=== PATIENT | female | born 1975 | race Caucasian/White ===

== ENCOUNTER → 2016-12-08 | Outpatient (CLI) | payer BC | LOC: LAB 08:40 | DX: N76.0 Acute vaginitis (principal) ==

== ENCOUNTER → 2016-12-15 | Outpatient (CLI) | payer BC | LOC: RAD 08:44 | DX: N94.0 Mittelschmerz (principal); R10.31 Right lower quadrant pain ==

== ENCOUNTER → 2017-08-25 | Outpatient (CLI) | payer BC ==
[2017-08-25 10:31] LABS: EOS % 0.7 % (1.0-5.0); HEMATOCRIT 43.3 % (37.0-47.0); HEMOGLOBIN 14.4 g/dL (12.5-16.0); LYMPH# 1.2 (1.50-4.00); MEAN CELL VOLUME 92 fl (78-100); MEAN CORPUSCULAR HEMOGLOBIN 31 pg (27-31); MEAN CORPUSCULAR HGB CONC 33 g/dL (33-37); MEAN PLATELET VOLUME 9.8 fl (7.4-10.4); MONO # 0.4 (0.20-0.80); NEU # 3.7 (1.40-6.50); PLATELET COUNT 268 K/mm3 (130-400); RED CELL DISTRIBUTION WIDTH 12.5 % (11.5-14.5); WHITE BLOOD COUNT 5.4 K/mm3 (4.8-10.8)
[2017-08-25 10:46] LABS: ALBUMIN 4.2 g/dL (3.5-5.0); BUN/CREATININE RATIO 14.5 (6.0-26.0); CALCIUM 9.3 mg/dL (8.4-10.2); TOTAL BILIRUBIN 1.1 mg/dL (0.2-1.3)
== END ==
LOC: LAB 10:05
DX: Z79.899 Other long term (current) drug therapy (principal)

== ENCOUNTER → 2019-06-27 | Outpatient (CLI) | payer BC ==
[2019-06-27 08:05] LABS: ALBUMIN 3.6 g/dL (3.5-5.0); POTASSIUM 3.5 mmol/L (3.5-5.1)
[2019-06-27 08:06] LABS: CALCIUM 8.6 mg/dL (8.3-10.5)
[2019-06-27 08:08] LABS: TOTAL PROTEIN 6.4 g/dL (6.4-8.3)
[2019-06-27 08:29] LABS: HEMATOCRIT 36.7 % (37.0-47.0); HEMOGLOBIN 11.9 g/dL (12.5-16.0); MEAN CELL VOLUME 92 fl (78-100); MEAN CORPUSCULAR HEMOGLOBIN 30 pg (27-31); MEAN CORPUSCULAR HGB CONC 32 g/dL (33-37); MEAN PLATELET VOLUME 9.8 fl (7.4-10.4); PLATELET COUNT 271 K/mm3 (130-400); RED BLOOD COUNT 4.01 M/mm3 (4.10-5.30); RED CELL DISTRIBUTION WIDTH 12.7 % (11.5-14.5); WHITE BLOOD COUNT 7.7 K/mm3 (4.8-10.8)
[2019-06-27 08:56] LABS: BAND 3 % (0-10); LYMPHOCYTE 6 % (20-51); MONOCYTE 4 % (3-10); NEUTROPHILS 86 % (42-75)
== END ==
LOC: LAB 07:28
PROVIDERS: Nurse Practitioner
DX: J34.89 Other specified disorders of nose and nasal sinuses (principal); R11.0 Nausea; R53.81 Other malaise; R79.89 Other specified abnormal findings of blood chemistry

== ENCOUNTER → 2019-09-27 | Outpatient (CLI) | payer BC | LOC: LAB 09:02 | DX: E03.9 Hypothyroidism, unspecified (principal) ==

== ENCOUNTER → 2020-12-23 | Outpatient (CLI) | payer BC ==
[~2020-12-23] MED LIST: PAROXETINE HYDR20 MG PO
[2020-12-23 17:50] LABS: ALBUMIN 4.2 g/dL (3.5-5.0); POTASSIUM 3.4 mmol/L (3.5-5.1)
[2020-12-23 17:52] LABS: CALCIUM 8.6 mg/dL (8.3-10.5)
[2020-12-23 17:53] LABS: TOTAL PROTEIN 6.5 g/dL (6.4-8.3)
[2020-12-23 17:55] LABS: TOTAL BILIRUBIN 1.4 mg/dL (0.2-1.2)
[2020-12-23 18:21] LABS: RED BLOOD COUNT 4.73 M/mm3 (4.10-5.30); WHITE BLOOD COUNT 6.8 K/mm3 (4.8-10.8)
[2020-12-23 18:22] LABS: EOS # 0.1 (0.04-0.40); EOS % 1.3 % (1.0-5.0); HEMATOCRIT 44.5 % (37.0-47.0); HEMOGLOBIN 14.1 g/dL (12.5-16.0); LYMPH# 2.3 (1.50-4.00); MEAN CELL VOLUME 94 fl (78-100); MEAN CORPUSCULAR HEMOGLOBIN 30 pg (27-31); MEAN CORPUSCULAR HGB CONC 32 g/dL (33-37); MEAN PLATELET VOLUME 9.8 fl (7.4-10.4); MONO # 0.4 (0.20-0.80); PLATELET COUNT 296 K/mm3 (130-400); RED CELL DISTRIBUTION WIDTH 12.9 % (11.5-14.5)
[2020-12-24 16:52] LABS: FOLLICLE STIMULATING HORMONE 10.4 mIU/mL (()); LUTENIZING HORMONE 5.5 mIU/mL (())
== END ==
LOC: LAB 16:13
PROVIDERS: Physician Assistant
DX: E03.9 Hypothyroidism, unspecified (principal); R61 Generalized hyperhidrosis

== ENCOUNTER 2021-04-05 17:09 | Emergency (ER) | payer BC ==
[2021-04-05] MEDS ORDERED: PAROXETINE HYDR20 MG PO (18:01)
[2021-04-05 19:31] VITALS: BP 120/86
== END 2021-04-05 19:31 | disposition home or self-care (01) ==
LOC: ED 17:09
DX: S63.502A Unspecified sprain of left wrist, initial encounter (principal); F41.9 Anxiety disorder, unspecified; F17.210 Nicotine dependence, cigarettes, uncomplicated; F17.290 Nicotine dependence, other tobacco product, uncomplicated; Z79.899 Other long term (current) drug therapy; V00.831A Fall from motorized mobility scooter, initial encounter

== ENCOUNTER → 2021-05-22 | Outpatient (CLI) | payer BC ==
[2021-05-22 14:47] LABS: BASO # 0.07 (0.02-0.10); EOS # 0.03 (0.04-0.40); EOS % 0.3 % (1.0-5.0); HEMATOCRIT 45.4 % (37.0-47.0); HEMOGLOBIN 14.7 g/dL (12.5-16.0); LYMPH# 1.04 (1.50-4.00); MEAN CELL VOLUME 93 fl (78-100); MEAN CORPUSCULAR HEMOGLOBIN 30 pg (27-31); MEAN CORPUSCULAR HGB CONC 32 g/dL (33-37); MEAN PLATELET VOLUME 9.8 fl (7.4-10.4); NEU # 8.36 (1.40-6.50); PLATELET COUNT 342 K/mm3 (130-400); RED BLOOD COUNT 4.86 M/mm3 (4.10-5.30); RED CELL DISTRIBUTION WIDTH 12.4 % (11.5-14.5); WHITE BLOOD COUNT 9.8 K/mm3 (4.8-10.8)
[2021-05-22 15:04] LABS: POTASSIUM 4.8 mmol/L (3.5-5.1); SODIUM 139 mmol/L (136-145)
[2021-05-22 15:05] LABS: ALBUMIN 4.7 g/dL (3.5-5.0)
[2021-05-22 15:06] LABS: CALCIUM 9.2 mg/dL (8.3-10.5)
[2021-05-22 15:07] LABS: GLUCOSE 68 mg/dL (65-105); TOTAL PROTEIN 7.5 g/dL (6.4-8.3)
[2021-05-22 15:08] LABS: CARBON DIOXIDE 22 mmol/L (22-29)
[2021-05-22 15:09] LABS: TOTAL BILIRUBIN 1.5 mg/dL (0.2-1.2)
[2021-05-22 15:12] LABS: AST-SGOT 26 U/L (5-34)
[2021-05-22 15:14] LABS: ALT/SGPT 27 U/L (0-55)
== END ==
LOC: LAB 14:11
PROVIDERS: Physician Assistant
DX: M25.50 Pain in unspecified joint (principal); E03.9 Hypothyroidism, unspecified; K90.9 Intestinal malabsorption, unspecified

== ENCOUNTER → 2021-06-15 | Outpatient (CLI) | payer BC | LOC: RAD 15:50 | DX: R51.9 Headache, unspecified (principal) ==

== ENCOUNTER → 2021-10-09 | Outpatient (CLI) | payer BC | LOC: RAD 11:22 | DX: R05.9 Cough, unspecified (principal) ==

== ENCOUNTER → 2021-10-29 | Outpatient (CLI) | payer BC | LOC: RAD 16:34 | DX: R07.89 Other chest pain (principal) ==